=== PATIENT | male | born 1980 | race Caucasian/White ===

== ENCOUNTER 2016-07-21 22:16 | Inpatient (IN) | payer OTHER ==
[~2016-07-21] VITALS: Ht 182.9 cm; Wt 101.2 kg
[2016-07-21] MEDS ORDERED: NITROGLYCERIN 2% OINT 1GM PKG TD STA (22:40)
[2016-07-21] MEDS ORDERED: ASPirin 81 mg TAB PO ONE (22:45)
[2016-07-21 23:04] LABS: Basophils # (auto) 0.1 uL; Basophils % (auto) 0.4 % (0.0-2.0); Eosinophils # (auto) 0.2 uL; Eosinophils % (auto) 1.6 % (0.0-7.0); Hematocrit 48.1 % (41.0-53.0); Hemoglobin 15.6 g/dL (13.5-17.5); Lymphocytes # (auto) 1.4 uL; Lymphocytes % (auto) 10.1 % (10.0-50.0); Mean Corpuscular Hemoglobin 29.1 pg (28.0-32.0); Mean Corpuscular Hgb Conc. 32.3 g/dL (32.0-36.0); Mean Corpuscular Volume 89.9 fL (80.0-100.0); Mean Platelet Volume 8.4 fL (7.4-10.4); Monocytes # (auto) 0.4 uL; Monocytes % (auto) 2.9 % (0.0-12.0); Neutrophils # (auto) 12.2 uL; Platelet Count (auto) 274 10^3/uL (140-450); Red Cell Distribution Width 14.3 % (11.6-16.0); White Blood Cell 14.3 10^3/uL (4.4-10.8)
[2016-07-21 23:24] LABS: INR 0.98 (0.9-1.15); Partial Thromboplastin Time 26.6 sec (22.64-33.71); Prothrombin Time 10.1 sec (9.37-12.3)
[2016-07-21 23:25] LABS: Albumin 3.7 g/dL (3.4-5.0); BUN/Creatinine Ratio 11.3; Calcium 8.6 mg/dL (8.5-10.1)
[2016-07-21 23:27] LABS: Bilirubin, Total 0.2 mg/dL (0.2-1.0); Total Protein 7.7 g/dL (6.4-8.2)
[2016-07-21 23:39] LABS: B-Type Natriuretic Peptide 102.08 pg/mL (0-100)
[2016-07-21] MEDS ORDERED: MORPHINE SULFATE 4 MG/ML SYRG IV ONE (23:45)
[2016-07-21] MEDS ORDERED: ONDANSETRON HCL 4 MG/2 ML VIAL IV ONE (23:45)
[2016-07-22] VITALS (7 sets, daily range): BP systolic 115–133; BP diastolic 58–92
[2016-07-22] MEDS ORDERED: cloNIDine HCL 0.1 MG TAB ONE
[2016-07-22] MEDS ORDERED: cloNIDine HCL 0.1 MG TAB PO ONE (00:30)
[2016-07-22] MEDS ORDERED: FUROSEMIDE 20 MG/2 ML VIAL IV ONE (02:15)
[2016-07-22] MEDS ORDERED: TEMAZEPAM 15 MG CAP PO PRN (05:30)
[2016-07-22] MEDS ORDERED: ONDANSETRON HCL 4 MG/2 ML VIAL IV PRN (05:30)
[2016-07-22] MEDS ORDERED: HYDROcodone-ACET 5/325MG TAB PO PRN (05:30)
[2016-07-22] MEDS ORDERED: ACETAMINOPHEN 325 MG TAB PO PRN (05:30)
[2016-07-22] MEDS ORDERED: cefTRIAXone 1GM/50ML D5W 50 ML IV ONE (05:30)
[2016-07-22] MEDS ORDERED: MORPHINE SULF INJ 2 MG/ML SYRINGE 1ML IV PRN ×2 (05:30→13:15)
[2016-07-22] MEDS ORDERED: NITROGLYCERIN 0.4 MG SL TAB SL PRN (05:30)
[2016-07-22] MEDS ORDERED: MORPHINE SULFATE 4 MG/ML SYRG IV ONE (06:00)
[2016-07-22] MEDS ORDERED: ONDANSETRON HCL 4 MG/2 ML VIAL IV ONE (06:00)
[2016-07-22] MEDS ORDERED: ATOR20TA50 PO (08:50)
[2016-07-22] MEDS ORDERED: CLON0.1T PO (08:50)
[2016-07-22] MEDS ORDERED: LISI-646 PO (08:50)
[2016-07-22] MEDS: FAMOTIDINE 20 MG TAB PO SCH ×2 (09:31→21:56)
[2016-07-22] MEDS: LISINOPRIL 10 MG TAB PO SCH (09:32)
[2016-07-22] MEDS: ASPirin 81 mg TAB PO SCH (09:33)
[2016-07-22] MEDS: ENOXAPARIN SOD 40 MG/0.4 ML SYRINGE SC SCH (09:34)
[2016-07-22] MEDS ORDERED: MORPHINE SULFATE 4 MG/ML SYRG IV PRN (10:00)
[2016-07-22] MEDS ORDERED: ATORVASTATIN 20 MG TAB PO SCH (22:00)
[2016-07-22 22:08] LABS: Urine RBC None Seen /hpf (0 - 3)
[2016-07-22 22:17] LABS: Urine Bilirubin Negative (Negative); Urine Blood Negative /uL (Negative); Urine Color Yellow (Yellow); Urine Glucose Normal (Normal); Urine Ketone Negative (Negative); Urine Nitrite Negative (Negative); Urine Squamous Epithelial Cell FEW /hpf (<5); Urine Urobilinogen Normal (Negative); Urine pH 5.5 (5.0-8.0)
[2016-07-23 05:00] VITALS: BP 156/93
[2016-07-23 06:20] LABS: Basophils # (auto) 0 uL; Basophils % (auto) 0.3 % (0.0-2.0); Eosinophils # (auto) 0.2 uL; Eosinophils % (auto) 2.3 % (0.0-7.0); Hematocrit 44.4 % (41.0-53.0); Hemoglobin 14.4 g/dL (13.5-17.5); Lymphocytes % (auto) 19.3 % (10.0-50.0); Mean Corpuscular Hemoglobin 29.2 pg (28.0-32.0); Mean Corpuscular Hgb Conc. 32.4 g/dL (32.0-36.0); Mean Corpuscular Volume 90.1 fL (80.0-100.0); Mean Platelet Volume 8.6 fL (7.4-10.4); Monocytes # (auto) 0.5 uL; Monocytes % (auto) 4.7 % (0.0-12.0); Neutrophils # (auto) 7.8 uL; Neutrophils % (auto) 73.4 % (37.0-80.0); Platelet Count (auto) 275 10^3/uL (140-450); Red Cell Distribution Width 14.6 % (11.6-16.0); White Blood Cell 10.6 10^3/uL (4.4-10.8)
[2016-07-23 06:47] LABS: Albumin 3.5 g/dL (3.4-5.0); BUN/Creatinine Ratio 17.1; Bilirubin, Total 0.5 mg/dL (0.2-1.0); Calcium 9.1 mg/dL (8.5-10.1); Potassium 4.1 mmol/L (3.5-5.1); Total Protein 7.6 g/dL (6.4-8.2)
[2016-07-23] MEDS: FAMOTIDINE 20 MG TAB PO SCH (08:23)
[2016-07-23] MEDS: ASPirin 81 mg TAB PO SCH (08:23)
[2016-07-23] MEDS: LISINOPRIL 10 MG TAB PO SCH (08:24)
[2016-07-23 09:02] VITALS: BP 159/93
[2016-07-23] MEDS: ENOXAPARIN SOD 40 MG/0.4 ML SYRINGE SC SCH (10:00)
[2016-07-23 13:00] VITALS: BP 134/92
[2016-07-23 13:10] VITALS: BP 159/93
== END 2016-07-23 13:10 | disposition home or self-care (01) | DRG 203 ==
LOC: ER 22:23 → TELE 22:24 → TELE-EAST 07-22 06:07
PROVIDERS: ADMIT Nurse Practitioner; ATTEND Internal Medicine
DX: M94.0 Chondrocostal junction syndrome [Tietze] (principal); I11.0 Hypertensive heart disease with heart failure; R07.9 Chest pain, unspecified; E78.5 Hyperlipidemia, unspecified; D72.829 Elevated white blood cell count, unspecified; M79.602 Pain in left arm; Z86.73 Personal history of transient ischemic attack (TIA), and cerebral infarction without residual deficits
CPT/HCPCS: 36415; 70450; 71010; 78452; 80053; 81001; 83735; 83880; 84443; 84484; 85025; 85049; 85610; 85730; 93005; 93017; 93306; 94761; 96365; 96375; 96376; J0696; J2405

== ENCOUNTER 2018-02-28 03:34 | Inpatient (IN) | payer OTHER ==
[~2018-02-28] VITALS: Ht 182.9 cm; Wt 104.2 kg
[~2018-02-28 03:34] MED LIST: ATOR20TA50 PO; CLON0.1T PO; LISI-646 PO
[2018-02-28] MEDS ORDERED: NITROGLYCERIN 0.4 MG SL TAB SL ONE (04:15)
[2018-02-28 04:16] LABS: Basophils # (auto) 0 uL; Basophils % (auto) 0.5 % (0.0-2.0); Eosinophils # (auto) 0.2 uL; Eosinophils % (auto) 1.9 % (0.0-7.0); Hematocrit 47.3 % (41.0-53.0); Hemoglobin 16.2 g/dL (13.5-17.5); Lymphocytes # (auto) 2.3 uL; Lymphocytes % (auto) 24.7 % (10.0-50.0); Mean Corpuscular Hemoglobin 31.3 pg (28.0-32.0); Mean Corpuscular Hgb Conc. 34.3 g/dL (32.0-36.0); Mean Corpuscular Volume 91.3 fL (80.0-100.0); Monocytes # (auto) 0.5 uL; Monocytes % (auto) 4.9 % (0.0-12.0); Neutrophils # (auto) 6.4 uL; Nucleated Red Blood Cells % 0.2 %; Platelet Count (auto) 265 10^3/uL (140-450); Red Blood Cells 5.18 10^6/uL (4.5-5.90); Red Cell Distribution Width 14.1 % (11.8-14.3); White Blood Cell 9.4 10^3/uL (4.4-10.8)
[2018-02-28 04:29] LABS: Albumin 3.6 g/dL (3.4-5.0); Calcium 8.1 mg/dL (8.5-10.1); Potassium 3.7 mmol/L (3.5-5.1)
[2018-02-28 04:31] LABS: BUN/Creatinine Ratio 8.6
[2018-02-28 04:32] LABS: INR 0.94 (0.9-1.15); Partial Thromboplastin Time 27.3 sec (23.78-33.04); Prothrombin Time 10.1 sec (9.27-12.13)
[2018-02-28] MEDS ORDERED: ONDANSETRON HCL 4 MG/2 ML VIAL IV ONE (04:45)
[2018-02-28] MEDS ORDERED: MORPHINE SULFATE 4 MG/ML SYR/VIAL IV ONE (04:45)
[2018-02-28 04:48] LABS: Bilirubin, Total 0.2 mg/dL (0.2-1.0); Total Protein 7.3 g/dL (6.4-8.2)
[2018-02-28] MEDS ORDERED: IOHEXOL 350 MG/ML 100ML IJ ONE ×2 (04:50→16:46)
[2018-02-28] MEDS ORDERED: cloNIDine HCL 0.1 MG TAB PO PRN ×2 (05:15→14:30)
[2018-02-28] MEDS ORDERED: NITROGLYCERIN 0.4 MG SL TAB SL PRN (05:15)
[2018-02-28] MEDS ORDERED: ENOXAPARIN SOD 100 MG/1 ML SYRINGE SC ONE (05:15)
[2018-02-28] MEDS ORDERED: ACETAMINOPHEN 325 MG TAB PO PRN (05:15)
[2018-02-28] MEDS ORDERED: ONDANSETRON HCL 4 MG/2 ML VIAL IV PRN (05:15)
[2018-02-28] MEDS ORDERED: MORPHINE SULF INJ 2 MG/ML SYRINGE 1ML IV PRN (05:15)
[2018-02-28] MEDS ORDERED: HYDROcodone-ACET 5/325MG TAB PO PRN (05:15)
[2018-02-28] MEDS ORDERED: ATORVASTATIN 20 MG TAB PO ONE (07:00)
[2018-02-28] MEDS ORDERED: ASPirin 81 mg TAB PO SCH (10:00)
[2018-02-28] MEDS: FAMOTIDINE 20 MG TAB PO SCH ×2 (10:08→22:44)
[2018-02-28] MEDS: LISINOPRIL 10 MG TAB PO SCH (10:08)
[2018-02-28] MEDS ORDERED: EPTIFIBATIDE DRIP(0.75MG/ML) 100 ML IV ONE (14:55)
[2018-02-28] MEDS: EPTIFIBATIDE DRIP(0.75MG/ML) 100 ML IV SCH ×2 (15:15→21:40)
[2018-02-28] MEDS ORDERED: LIDOCAINE 2%HCL (LOCAL ANESTH.) INJ 10ml MDV ONE (15:33)
[2018-02-28] MEDS ORDERED: IODIXANOL 320MG/ML 100ML BTL IV ONE (15:33)
[2018-02-28] MEDS ORDERED: fentaNYL CITRATE 100 MCG/2 ML VL ONE (16:26)
[2018-02-28] MEDS ORDERED: MIDAZOLAM HCL 1MG/1ML-2 ML VIAL ONE (16:26)
[2018-02-28] MEDS ORDERED: SODIUM CHL 0.9% 50 ML ONE (16:35)
[2018-02-28] MEDS ORDERED: ANGIOMAX 250 MG VIAL IV ONE (16:35)
[2018-02-28] MEDS ORDERED: TICAGRELOR 90 MG TAB ONE (16:55)
[2018-02-28] MEDS ORDERED: ASPirin 325 MG TAB ONE (16:56)
[2018-02-28 21:58] VITALS: BP 143/66
[2018-02-28] MEDS ORDERED: ATORVASTATIN 20 MG TAB PO SCH (22:00)
[2018-02-28] MEDS: TICAGRELOR 90 MG TAB PO SCH (22:44)
[2018-03-01] MEDS: EPTIFIBATIDE DRIP(0.75MG/ML) 100 ML IV SCH ×2 (03:59→11:00)
[2018-03-01 05:58] VITALS: BP 102/54
[2018-03-01 07:41] LABS: Basophils # (auto) 0 uL; Basophils % (auto) 0.3 % (0.0-2.0); Eosinophils # (auto) 0.1 uL; Eosinophils % (auto) 0.8 % (0.0-7.0); Hematocrit 41.5 % (41.0-53.0); Hemoglobin 13.9 g/dL (13.5-17.5); Lymphocytes # (auto) 1.2 uL; Lymphocytes % (auto) 14.7 % (10.0-50.0); Mean Corpuscular Hemoglobin 30.9 pg (28.0-32.0); Mean Corpuscular Hgb Conc. 33.5 g/dL (32.0-36.0); Mean Corpuscular Volume 92.2 fL (80.0-100.0); Monocytes # (auto) 0.4 uL; Monocytes % (auto) 5.3 % (0.0-12.0); Neutrophils # (auto) 6.4 uL; Neutrophils % (auto) 78.9 % (37.0-80.0); Platelet Count (auto) 232 10^3/uL (140-450); Red Cell Distribution Width 14.3 % (11.8-14.3); White Blood Cell 8.1 10^3/uL (4.4-10.8)
[2018-03-01 08:19] LABS: Albumin 2.9 g/dL (3.4-5.0); BUN/Creatinine Ratio 15.7; Bilirubin, Total 0.7 mg/dL (0.2-1.0); Calcium 7.7 mg/dL (8.5-10.1); Total Protein 6.1 g/dL (6.4-8.2)
[2018-03-01 09:00] VITALS: BP 120/70
[2018-03-01] MEDS ORDERED: ASPirin 81 mg TAB PO SCH (10:00)
[2018-03-01] MEDS: TICAGRELOR 90 MG TAB PO SCH (10:33)
[2018-03-01] MEDS: LISINOPRIL 10 MG TAB PO SCH (10:34)
[2018-03-01] MEDS: FAMOTIDINE 20 MG TAB PO SCH (10:34)
[2018-03-01 13:00] VITALS: BP 124/85
[2018-03-01 16:03] VITALS: BP 124/85
== END 2018-03-01 16:20 | disposition home or self-care (01) | DRG 175 ==
LOC: EDBD 03:34 → ER 03:40 → TELE 03:41 → TELE-CENTR 19:25
PROVIDERS: ADMIT Nurse Practitioner; ATTEND Internal Medicine
PROC: 4A023N7 Measurement of Cardiac Sampling and Pressure, Left Heart, Percutaneous Approach (ICD-10-PCS; principal; 2018-02-28)
PROC: 027035Z Dilation of Coronary Artery, One Artery with Two Drug-eluting Intraluminal Devices, Percutaneous Approach (ICD-10-PCS; 2018-02-28)
PROC: B2111ZZ Fluoroscopy of Multiple Coronary Arteries using Low Osmolar Contrast (ICD-10-PCS; 2018-02-28)
PROC: B2151ZZ Fluoroscopy of Left Heart using Low Osmolar Contrast (ICD-10-PCS; 2018-02-28)
PROC: 02C03ZZ Extirpation of Matter from Coronary Artery, One Artery, Percutaneous Approach (ICD-10-PCS; 2018-02-28)
DX: I25.119 Atherosclerotic heart disease of native coronary artery with unspecified angina pectoris (principal); I21.19 ST elevation (STEMI) myocardial infarction involving other coronary artery of inferior wall; I50.43 Acute on chronic combined systolic (congestive) and diastolic (congestive) heart failure; E44.0 Moderate protein-calorie malnutrition; N18.2 Chronic kidney disease, stage 2 (mild); I13.0 Hypertensive heart and chronic kidney disease with heart failure and stage 1 through stage 4 chronic kidney disease, or unspecified chronic kidney disease; E78.5 Hyperlipidemia, unspecified; E66.9 Obesity, unspecified; F17.210 Nicotine dependence, cigarettes, uncomplicated; Z68.31 Body mass index [BMI] 31.0-31.9, adult; Z82.49 Family history of ischemic heart disease and other diseases of the circulatory system; Z86.73 Personal history of transient ischemic attack (TIA), and cerebral infarction without residual deficits; Z91.14 Patient's other noncompliance with medication regimen
CPT/HCPCS: 36415; 71045; 71275; 80053; 83880; 84484; 85025; 85610; 85730; 92928; 92973; 93005; 93306; 93458; 94761; 96372; 96374; 96375; 96376; 99152; A6257; C1874; C1887; J2001; J2250; J2405; Q9967

== ENCOUNTER → 2018-04-11 | Outpatient (CLI) | payer OTHER, MEDICAID ==
[~2018-04-11] MED LIST changes: -CLON0.1T PO
== END | disposition home or self-care (01) ==
LOC: Rad HDHVI 13:19
PROVIDERS: ATTEND Internal Medicine
DX: I08.1 Rheumatic disorders of both mitral and tricuspid valves (principal); I25.10 Atherosclerotic heart disease of native coronary artery without angina pectoris; I25.2 Old myocardial infarction; Z95.5 Presence of coronary angioplasty implant and graft
CPT/HCPCS: 93306

== ENCOUNTER → 2018-06-23 | Outpatient (CLI) | payer MEDICAID ==
[~2018-06-23] MED LIST changes: +CARVEDILOL 3.125 MG TAB ONE; +CARVEDILOL 3.125 MG TAB PO ONE; +LISINOPRIL 10 MG TAB ONE; +LISINOPRIL 20 MG TAB PO ONE
[2018-06-23 12:07] LABS: Basophils # (auto) 0 uL; Basophils % (auto) 0.6 % (0.0-2.0); Eosinophils # (auto) 0.2 uL; Hematocrit 48.1 % (41.0-53.0); Lymphocytes % (auto) 29.9 % (10.0-50.0); Mean Corpuscular Hemoglobin 30.1 pg (28.0-32.0); Mean Corpuscular Hgb Conc. 33.1 g/dL (32.0-36.0); Mean Corpuscular Volume 90.8 fL (80.0-100.0); Monocytes # (auto) 0.3 uL; Monocytes % (auto) 5.2 % (0.0-12.0); Neutrophils % (auto) 61.3 % (37.0-80.0); Platelet Count (auto) 283 10^3/uL (140-450); White Blood Cell 6.5 10^3/uL (4.4-10.8)
[2018-06-23 12:21] LABS: Anion Gap 7 (5-15); Blood Urea Nitrogen 13 mg/dL (7-18); Calcium 8.7 mg/dL (8.5-10.1); Carbon Dioxide 23 mmol/L (21-32); Chloride 106 mmol/L (98-107); Glucose 105 mg/dL (74-106); Magnesium 2.2 mg/dL (1.6-2.6); Potassium 4.1 mmol/L (3.5-5.1); Sodium 136 mmol/L (136-145)
[2018-06-23 12:23] LABS: BUN/Creatinine Ratio 14.4; GFR African American 121 mL/min; GFR Non-African American 100 mL/min
[2018-06-23 14:00] VITALS: BP 140/90
== END | disposition home or self-care (01) ==
LOC: CHF HDHVI 10:31
PROVIDERS: ATTEND Internal Medicine
DX: I25.119 Atherosclerotic heart disease of native coronary artery with unspecified angina pectoris (principal); I11.0 Hypertensive heart disease with heart failure; I50.23 Acute on chronic systolic (congestive) heart failure; E83.40 Disorders of magnesium metabolism, unspecified; D64.9 Anemia, unspecified; I95.1 Orthostatic hypotension; I25.9 Chronic ischemic heart disease, unspecified; I49.8 Other specified cardiac arrhythmias; R94.31 Abnormal electrocardiogram [ECG] [EKG]; Z86.79 Personal history of other diseases of the circulatory system
CPT/HCPCS: 36415; 80048; 83735; 83880; 84484; 85025; 93005; G0463

== ENCOUNTER → 2018-07-18 | Outpatient (CLI) | payer MEDICAID ==
[~2018-07-18] MED LIST changes: -CARVEDILOL 3.125 MG TAB ONE; -CARVEDILOL 3.125 MG TAB PO ONE; -LISINOPRIL 10 MG TAB ONE; -LISINOPRIL 20 MG TAB PO ONE
== END | disposition home or self-care (01) ==
LOC: Rad HDHVI 14:43
PROVIDERS: ATTEND Internal Medicine Cardiovascular Disease
DX: I42.0 Dilated cardiomyopathy (principal); I50.23 Acute on chronic systolic (congestive) heart failure
CPT/HCPCS: 93306

== ENCOUNTER → 2018-09-20 | Outpatient (CLI) | payer MEDICAID ==
[~2018-09-20] MED LIST changes: +ASPI81TA27 PO; +CARV12.544 PO; +CLOP75TA28 PO; +SACU1TAB4 PO
[2018-09-20 09:00] VITALS: BP 138/102
[2018-09-20 09:41] VITALS: BP 148/98
--- NOTE | 2018-09-20 09:41 | NUR ---
PREOP BIV-AICD ON 09/22/18 Pre-Op Discharge Summary: See e-MAR for any medications given for this visit. Pre-op orders received and carried out per MD of EKG, LABS. Patient given a copy of EKG with instructions to go to [facility] out patient for CXR AND further follow up care.
[2018-09-20 12:02] LABS: Basophils # (auto) 0 uL; Basophils % (auto) 0.5 % (0.0-2.0); Eosinophils # (auto) 0.2 uL; Eosinophils % (auto) 3.4 % (0.0-7.0); Hematocrit 47.1 % (41.0-53.0); Hemoglobin 15.7 g/dL (13.5-17.5); Lymphocytes # (auto) 1.8 uL; Lymphocytes % (auto) 30.5 % (10.0-50.0); Mean Corpuscular Hemoglobin 30.7 pg (28.0-32.0); Mean Corpuscular Hgb Conc. 33.2 g/dL (32.0-36.0); Mean Corpuscular Volume 92.5 fL (80.0-100.0); Monocytes # (auto) 0.4 uL; Neutrophils # (auto) 3.5 uL; Neutrophils % (auto) 59.6 % (37.0-80.0); Nucleated Red Blood Cells % 0.9 %; Platelet Count (auto) 208 10^3/uL (140-450); Red Blood Cells 5.09 10^6/uL (4.5-5.90); Red Cell Distribution Width 14.7 % (11.8-14.3); White Blood Cell 5.8 10^3/uL (4.4-10.8)
[2018-09-20 12:14] LABS: INR 0.94 (0.9-1.15); Partial Thromboplastin Time 23.8 sec (23.78-33.04); Prothrombin Time 10.1 sec (9.27-12.13)
[2018-09-20 12:18] LABS: Potassium 4.2 mmol/L (3.5-5.1)
[2018-09-20 12:22] LABS: BUN/Creatinine Ratio 14.1; Calcium 8.8 mg/dL (8.5-10.1)
== END | disposition home or self-care (01) ==
LOC: CHF HDHVI 08:49
PROVIDERS: ATTEND Internal Medicine Cardiovascular Disease
DX: Z01.818 Encounter for other preprocedural examination (principal); I11.0 Hypertensive heart disease with heart failure; I50.9 Heart failure, unspecified; I42.9 Cardiomyopathy, unspecified; I25.9 Chronic ischemic heart disease, unspecified; D64.9 Anemia, unspecified; R79.1 Abnormal coagulation profile
CPT/HCPCS: 36415; 80048; 85025; 85610; 85730; 93005; G0463

== ENCOUNTER 2018-09-22 07:13 | Inpatient (IN) | payer MEDICAID | END 2018-09-23 16:16 | disposition home or self-care (01) | LOC: CATH 07:13 → TELE-CENTR 13:10 | PROC: 0JPT0PZ Removal of Cardiac Rhythm Related Device from Trunk Subcutaneous Tissue and Fascia, Open Approach (ICD-10-PCS; principal; ~2018-09-22) | PROC: 0JH609Z Insertion of Cardiac Resynchronization Defibrillator Pulse Generator into Chest Subcutaneous Tissue and Fascia, Open Approach (ICD-10-PCS; ~2018-09-22) | DX: I47.2 Ventricular tachycardia (principal); I42.0 Dilated cardiomyopathy; I50.20 Unspecified systolic (congestive) heart failure; I45.10 Unspecified right bundle-branch block; I49.8 Other specified cardiac arrhythmias; Z95.810 Presence of automatic (implantable) cardiac defibrillator ==

== ENCOUNTER → 2018-10-19 | Outpatient (CLI) | payer MEDICAID ==
[~2018-10-19] MED LIST changes: -LISI-646 PO
== END | disposition home or self-care (01) ==
LOC: Rad HDHVI 10:03
PROVIDERS: ATTEND Internal Medicine Cardiovascular Disease
DX: I08.1 Rheumatic disorders of both mitral and tricuspid valves (principal); I25.5 Ischemic cardiomyopathy; I50.23 Acute on chronic systolic (congestive) heart failure
CPT/HCPCS: 93306

== ENCOUNTER → 2018-11-02 | Outpatient (CLI) | payer MEDICAID ==
[~2018-11-02] VITALS: Ht 182.9 cm; Wt 102.1 kg
[~2018-11-02] MED LIST changes: +ADENOSINE 86 MG in GIVE UN-DILUTED 0 ML IV ONE; +ADENOSINE 90 MG/30 ML INJ IV ONE
== END | disposition home or self-care (01) ==
LOC: Rad HDHVI 13:47
PROVIDERS: ATTEND Internal Medicine Cardiovascular Disease
DX: I11.0 Hypertensive heart disease with heart failure (principal); I50.23 Acute on chronic systolic (congestive) heart failure; I25.5 Ischemic cardiomyopathy
CPT/HCPCS: 78452; 93005; 96374; 96375; A9500; J0153

== ENCOUNTER 2019-05-30 23:49 | Emergency (ER) | payer MEDICAID ==
[~2019-05-30] VITALS: Ht 182.9 cm; Wt 102.1 kg
[~2019-05-30 23:49] MED LIST changes: -ADENOSINE 86 MG in GIVE UN-DILUTED 0 ML IV ONE; -ADENOSINE 90 MG/30 ML INJ IV ONE; +ASPI-404 PO; -ASPI81TA27 PO
[2019-05-31] MEDS ORDERED: cefTRIAXone 1GM/50ML D5W 50 ML IV ONE ×2 (00:22→01:32)
[2019-05-31] MEDS ORDERED: CEFTRIAXONE SODIUM 2 GM in D5W 5% 50 ML IV ONE (00:30)
[2019-05-31 00:31] LABS: Basophils # (auto) 0.1 uL; Basophils % (auto) 0.7 % (0.0-2.0); Eosinophils # (auto) 0.1 uL; Eosinophils % (auto) 1.3 % (0.0-7.0); Hematocrit 48.9 % (41.0-53.0); Hemoglobin 16.8 g/dL (13.5-17.5); Lymphocytes # (auto) 1.7 uL; Lymphocytes % (auto) 16.9 % (10.0-50.0); Mean Corpuscular Hemoglobin 32.5 pg (28.0-32.0); Mean Corpuscular Hgb Conc. 34.3 g/dL (32.0-36.0); Mean Corpuscular Volume 94.9 fL (80.0-100.0); Monocytes # (auto) 0.6 uL; Monocytes % (auto) 6.4 % (0.0-12.0); Neutrophils # (auto) 7.5 uL; Neutrophils % (auto) 74.7 % (37.0-80.0); Platelet Count (auto) 204 10^3/uL (140-450); Red Blood Cells 5.15 10^6/uL (4.5-5.90); Red Cell Distribution Width 14.6 % (11.8-14.3); White Blood Cell 10.1 10^3/uL (4.4-10.8)
[2019-05-31 00:49] LABS: Albumin 3.6 g/dL (3.4-5.0); BUN/Creatinine Ratio 13.6; Calcium 8.4 mg/dL (8.5-10.1)
[2019-05-31 00:56] LABS: Bilirubin, Total 0.4 mg/dL (0.2-1.0); Total Protein 7.5 g/dL (6.4-8.2)
[2019-05-31] MEDS ORDERED: IOHEXOL 300 MG/ML 100ML BOTTLE IJ ONE (01:05)
[2019-05-31 02:10] VITALS: BP 131/70
== END 2019-05-31 03:14 | disposition home or self-care (01) ==
LOC: ER 23:51
DX: K04.7 Periapical abscess without sinus (principal); I11.0 Hypertensive heart disease with heart failure; I50.9 Heart failure, unspecified; E78.5 Hyperlipidemia, unspecified; F17.210 Nicotine dependence, cigarettes, uncomplicated; H92.02 Otalgia, left ear; Z86.73 Personal history of transient ischemic attack (TIA), and cerebral infarction without residual deficits; Z79.899 Other long term (current) drug therapy
CPT/HCPCS: 36415; 70487; 80053; 85025; 96365; 99284; J0696; J7060; Q9967

== ENCOUNTER → 2020-12-03 | Outpatient (CLI) | payer MEDICAID ==
[~2020-12-03] MED LIST changes: -ASPI-404 PO; +ASPI-543 PO
== END | disposition home or self-care (01) ==
LOC: Rad HDHVI 08:06
PROVIDERS: ATTEND Internal Medicine Cardiovascular Disease
DX: I10 Essential (primary) hypertension (principal); E78.5 Hyperlipidemia, unspecified
CPT/HCPCS: 93306

== ENCOUNTER → 2021-01-21 | Outpatient (CLI) | payer MEDICAID ==
[~2021-01-21] VITALS: Ht 182.9 cm; Wt 99.8 kg
[~2021-01-21] MED LIST changes: +ADENOSINE 84 MG in GIVE UN-DILUTED 0 ML IV ONE; +ADENOSINE 90 MG/30 ML INJ IV ONE
== END | disposition home or self-care (01) ==
LOC: Rad HDHVI 07:59
PROVIDERS: ATTEND Internal Medicine Cardiovascular Disease
DX: I11.0 Hypertensive heart disease with heart failure (principal); I50.43 Acute on chronic combined systolic (congestive) and diastolic (congestive) heart failure; I25.10 Atherosclerotic heart disease of native coronary artery without angina pectoris; I25.2 Old myocardial infarction; E78.5 Hyperlipidemia, unspecified; J44.9 Chronic obstructive pulmonary disease, unspecified; Z95.0 Presence of cardiac pacemaker
CPT/HCPCS: 78452; 93005; 96374; 96375; A9500; J0153

== ENCOUNTER → 2021-01-27 | Outpatient (CLI) | payer MEDICAID ==
[~2021-01-27] MED LIST changes: -ADENOSINE 84 MG in GIVE UN-DILUTED 0 ML IV ONE; -ADENOSINE 90 MG/30 ML INJ IV ONE
== END | disposition home or self-care (01) ==
LOC: Rad HDHVI 09:14
PROVIDERS: ATTEND Internal Medicine Cardiovascular Disease
DX: M25.512 Pain in left shoulder (principal); I70.0 Atherosclerosis of aorta; I25.10 Atherosclerotic heart disease of native coronary artery without angina pectoris
CPT/HCPCS: 73200

== ENCOUNTER 2023-07-31 13:57 | Emergency (ER) | payer SELFPAY ==
[~2023-07-31] VITALS: Ht 182.9 cm; Wt 104.5 kg
[2023-07-31 15:41] VITALS: BP 169/85; PULSE 93; RESP 18; TEMP 98.7; O2SAT 100
[2023-07-31] MEDS ORDERED: CIPRSUS OT ×2 (15:47)
[2023-07-31] MEDS ORDERED: CIPR0.3S67 OP (15:48)
== END 2023-07-31 15:57 | disposition home or self-care (01) ==
LOC: ER 13:57
DX: H10.32 Unspecified acute conjunctivitis, left eye (principal); I11.0 Hypertensive heart disease with heart failure; I50.9 Heart failure, unspecified; E78.5 Hyperlipidemia, unspecified; F17.210 Nicotine dependence, cigarettes, uncomplicated; Z86.73 Personal history of transient ischemic attack (TIA), and cerebral infarction without residual deficits; Z79.899 Other long term (current) drug therapy

== ENCOUNTER → 2023-12-23 | Outpatient (CLI) | payer MEDICAID ==
[~2023-12-23] MED LIST changes: +CIPR0.3S67 OP
== END | disposition home or self-care (01) ==
LOC: Rad HDHVI 08:01
PROVIDERS: ATTEND Internal Medicine Cardiovascular Disease
DX: I34.0 Nonrheumatic mitral (valve) insufficiency (principal); E78.5 Hyperlipidemia, unspecified; I11.9 Hypertensive heart disease without heart failure
CPT/HCPCS: 93306

== ENCOUNTER → 2023-12-24 | Outpatient (CLI) | payer MEDICAID ==
[~2023-12-24] VITALS: Ht 182.9 cm; Wt 106.6 kg
[~2023-12-24] MED LIST changes: +ADENOSINE 90 MG in GIVE UN-DILUTED 0 ML IV ONE; +ADENOSINE 90 MG/30 ML INJ IV ONE
== END | disposition home or self-care (01) ==
LOC: Rad HDHVI 08:22
PROVIDERS: ATTEND Internal Medicine Cardiovascular Disease
DX: I25.10 Atherosclerotic heart disease of native coronary artery without angina pectoris (principal); I11.0 Hypertensive heart disease with heart failure; I50.23 Acute on chronic systolic (congestive) heart failure; E78.5 Hyperlipidemia, unspecified; R60.9 Edema, unspecified; I25.2 Old myocardial infarction; R06.02 Shortness of breath; J44.9 Chronic obstructive pulmonary disease, unspecified; F17.210 Nicotine dependence, cigarettes, uncomplicated; Z95.0 Presence of cardiac pacemaker
CPT/HCPCS: 78452; 93005; 96374; 96375; A9500; J0153

== ENCOUNTER 2024-04-05 13:37 | Emergency (ER) | payer MEDICAID ==
[~2024-04-05] VITALS: Ht 182.9 cm; Wt 103.0 kg
[~2024-04-05 13:37] MED LIST changes: -ADENOSINE 90 MG in GIVE UN-DILUTED 0 ML IV ONE; -ADENOSINE 90 MG/30 ML INJ IV ONE
[2024-04-05 14:06] VITALS: BP 136/83; PULSE 86; RESP 18; O2SAT 94
[2024-04-05] MEDS ORDERED: CEFD300C2 PO (16:59)
[2024-04-05] MEDS ORDERED: BACI1OIN45 EX (16:59)
== END 2024-04-05 21:24 | disposition home or self-care (01) ==
LOC: ER 13:45
DX: N49.2 Inflammatory disorders of scrotum (principal); N43.3 Hydrocele, unspecified; I11.0 Hypertensive heart disease with heart failure; I50.89 Other heart failure; E78.5 Hyperlipidemia, unspecified; F17.210 Nicotine dependence, cigarettes, uncomplicated; Z79.899 Other long term (current) drug therapy
CPT/HCPCS: 76870

== ENCOUNTER → 2024-07-17 | Outpatient (CLI) | payer MEDICAID ==
[~2024-07-17] MED LIST changes: +BACI1OIN45 EX; +CEFD300C2 PO
--- NOTE | 2024-07-17 16:38 | DVHSR ---
APPROVED REPORT EXAM: Two-dimensional and M-mode echocardiogram with Doppler and color Doppler. DIMENSIONS LVDd5.7 (3.8-5.7cm)LA (2D)4.3 (1.9-4.0cm)Aortic Root3.2 (2.0-3.7cm) LVDs5.2 (2.5-4.0cm)LA (MM) (1.9-4.0cm)Aortic Cusp Exc2.0 (1.5-2.0cm) EF (%) 21.0 (55-70%)Rt. Atrium4.3 (1.9-4.0cm)Asc. Aorta cm IVSd1.3 (0.7-1.1cm)RV (D)3.2 (1.8-2.4cm) PWd1.2 (0.7-1.1cm) Mitral Valve MitralMitral Stenosis E wave0.73m/sMV Mean GR.mmHg A wave0.77m/sMV Peak GR.102mmHg E/A ratio0.92D MVAcm2 DECEL [id number] 1/2 Timems Aortic Valve Aortic ValveAortic Stenosis V11.08m/Juana Mean GR.2mmHg V21.25m/Juana Peak GR.6mmHg Pulmonic Valve V20.79m/s Tricuspid Valve [id number] LEFT VENTRICLE The Ejection Fraction is <25%. ATRIA The left atrium is dilated. The right atrium is dilated. MITRAL VALVE The mitral valve is normal in structure and function. Mitral regurgitation is moderate. PULMONIC VALVE The pulmonic valve is not well visualized. TRICUSPID VALVE The tricuspid valve is grossly normal. There is trace tricuspid regurgitation. AORTIC VALVE The aortic valve opens well. No aortic regurgitation is present. GREAT VESSELS The aortic root is normal size. PERICARDIAL EFFUSION There is no pericardial effusion. Conclusion EF <25% MOD MR LAE RACHEL [facility]
== END | disposition home or self-care (01) ==
LOC: Rad HDHVI 10:55
PROVIDERS: ATTEND Internal Medicine Cardiovascular Disease
DX: I34.0 Nonrheumatic mitral (valve) insufficiency (principal); Z95.0 Presence of cardiac pacemaker
CPT/HCPCS: 93306

== ENCOUNTER 2025-03-14 19:43 | Emergency (ER) | payer MEDICAID ==
[~2025-03-14] VITALS: Ht 182.9 cm; Wt 120.9 kg
[2025-03-14 19:44] VITALS: BP 144/88; PULSE 91; RESP 18; TEMP 97.8; O2SAT 97
--- NOTE | 2025-03-14 21:07 | DVH ---
COMPUTERIZED TOMOGRAPHY ABDOMEN AND PELVIS WITHOUT CONTRAST REASON FOR EXAM: L FLANK PAIN COMPARISON: None TECHNIQUE: Spiral scans were acquired from the diaphragm to the symphysis pubis without intravenous c ontrast administration. 2-D coronal and sagittal reformatted images were provided. Radiation optimiza tion: All CT scans at this facility use at least one of these dose optimization techniques: Automated exposure control mA and/or kV adjustment per patient size (includes targeted exams where dose is mat ched to clinical indication) or iterative reconstruction. RADIATION DOSE: CTDI: 22.94 mGy DLP: 1308.38 mGy-cm FINDINGS: There is mild dependent atelectasis in the left lower lobe. There is no pleural effusion. There is n o pericardial effusion. There is partial visualization of cardiac pacer wires. The spleen is not enlarged. The liver is normal in size and contour. Evaluation of the abdominal org ans is suboptimal in the absence of intravenous contrast. No calcified gallstone is identified. Ther e is no pericholecystic edema. Unenhanced appearance of the pancreas is unremarkable. The adrenal g lands are normal. The kidneys are similar in size. There is no hydronephrosis of either kidney. There is no renal, ureteral, or bladder calculus. There is no abdominal aortic aneurysm. There is moderat e atherosclerosis. The urinary bladder is unremarkable. The prostate and seminal vesicles are within normal limits. The colonic stool burden is small. The appendix is normal. There is no pathologic di stention of the small bowel. No free fluid is identified in the abdomen or pelvis. There is no path ologic lymphadenopathy by size criteria. No acute osseous abnormality is identified. IMPRESSION: No renal, ureteral, or bladder calculus is identified. There is no hydronephrosis of either kidney.
--- NOTE | 2025-03-14 21:25 | ED.PDOC ---
Back pain HPI HPI Comments HPI: 44-year-old male presents to the ED with a chief complaint of right upper back pain onset 2 weeks. Patient states he has been experiencing upper back pain for the past two weeks, points to immediately below left scapula region. Since today, pain has been constant, sharp and has worsened. Pain has slight improvement when he sits, does not move. Denies any dysuria, hematuria, hematemesis, fever, chills, chest pain, shortness a breath, dizziness, headache. No other symptoms or modifying factors present at this time. Initial Vitals BP: 144/88 HR: 91 RR: 18 O2: 97% Temp: 97.8 F Past Medical History: CHF, CVA, HTN, HLD Past Surgical History: pacemaker, Social History: Denies drug use. Smokes cigarettes, occasional ETOH. Medications: Aspirin, Atorvastatin Allergies: NKDA HPI: Poor Historian. REVIEW OF SYSTEMS: CONSTITUTIONAL: Denies acute: fever, diaphoresis, chills, generalized weakness. HEAD: Denies acute: headache, photophobia Eyes: Denies acute: Double vision, vision loss, eye pain, eye discharge. EARS: Denies acute: tinnitus, hearing loss, ear discharge, ear pain, THROAT: Denies acute: sore throat, swelling, difficulty swallowing , pain with swallowing, change in voice. NECK: Denies acute: neck pain, neck swelling, stiff neck. HEART: Denies acute : chest pain, palpitations, LUNGS: Denies acute: SOB, wheezing, cough, hemoptysis ABDOMEN: Denies acute: abdominal pain, Nausea, Vomiting, diarrhea, melena , hematemesis, hematochezia SKIN: Denies acute: rash, redness, lesions, itchiness. EXTREMITIES: Denies acute: calf pain, numbness, tingling, weakness, denies pain in extremity. Denies acute: Low back pain. Neuro: Denies acute: focal neurological deficit, motor or sensory focal neurological deficit, tremors, seizure like activity, confusion, dizziness, change in mental status, loss of bowel or bladder function, cauda equina like symptoms. : Denies acute: dysuria, hematuria, flank pain, increase in urinary frequency. PSYCH: Denies acute: hallucination, suicidal ideation, homicidal ideation. PHYSICAL EXAM: General: ----mild----acute distress, awake and alert. Head: normocephalic, atraumatic. Neck: supple, trachea is midline, no swelling. Throat: Normal phonation. Eyes:, no erythema, no purulent discharge, no proptosis, no icterus. Heart: regular rate, regular rhythm, no significant murmur appreciated. Lungs: no apparent respiratory distress, Able to speak in full sentences. No wheezing, no rhonchi, no crackles. No stridors Clear to auscultation bilaterally. Abdomen: non tender to palpation, non distended, soft, no guarding, no rebound, + bowel sounds. Evaluation of the area of specific complaint: Right-sided below the right sc apula focal area of tenderness to palpation that is worse with movement of the left upper extremity and deep inspiration. No appreciated erythema or lesions or rashes or swelling or crepitus. Neuro: Awake, Alert, oriented to name, self, situation, follows commands GCS=15. Speech is normal. Skin: no petechia, no purpura, no cyanosis, non-pale, not jaundice. Lower extremities: --no - Pitting edema no deformity, no focal swelling, no calf TTP. Makes eye contact. moves all four extremities. Face: no apparent facial droop. No CVA tenderness to percussion bilaterally. Ambulating in the ED independently. ED COURSE: DISCLAIMER: This medical document was created using an electronic medical record system with voice recognition software and computerized dictation system. Although this document has been carefully reviewed, there might still be some phonetic and typographical errors. Occasional wrong-word or "sound-alike" substitutions may have occurred due to the inherent limitations of voice recognition software. These areas are purely typographical due to imperfections of the software programs and do not reflect any compromise in the patient's medical care. Please read the chart carefully and recognize, using context, where these substitutions have occurred. Chief Complaint: Flank Pain Time Seen by MD: 21:20 Primary Care Provider: DENIES Reviewed Notes: Medications, Allergies Allergies: Coded Allergies: NO KNOWN ALLERGIES (Unverified , 09/20/18) Home Meds Active Scripts Bacitracin-Polymyxin B (Neosporin 500-02855 Unit/gm) 1 Oin Oin, 1 OIN EX TID for 10 Days, #30 OIN Prov:VINOD BURGOS MD 04/05/24 Cefdinir (Cefdinir) 300 Mg Cap, 1 CAP PO BID for 10 Days, #20 CAP Prov:VINOD BURGOS MD 04/05/24 Ciprofloxacin HCl (Ophth) (Ciprofloxacin Hydrochlori) 0.3 % Emi, 2 DROP OP QID, #5 ML Prov:RAJ HERRERA 07/31/23 Reported Medications Aspirin (Aspir-Low) 81 Mg Tab, 81 MG PO DAILY for 30 Days, MG 09/21/18 Clopidogrel Bisulfate (Plavix) 75 Mg Tab, 1 TAB PO DAILY, #90 TAB 1 Refill 09/21/18 Carvedilol (Carvedilol) 12.5 Mg Tab, 12.5 MG PO Q12HR for 30 Days, MG 09/21/18 Sacubitril-Valsartan (Entresto 97-103 mg) 1 Tab Tab, 1 TAB PO BID, TAB 09/21/18 Atorvastatin Calcium (ATORVASTATIN CALCIUM) 20 Mg Tab, 20 MG PO HS, TAB 07/22/16 Information Source: Patient Mode of Arrival: Ambulatory Timing: Weeks Duration: Intermittent Severity: Moderate Prehospital treatment: None Quality: Sharp Onset: Spontaneous History of: None Modifying Factors: Nothing Past Medical History PAST MEDICAL HISTORY: CHF, CVA, High Lipids, HTN Surgical History: Pacemaker Family History Family History: Reviewed,noncontributory to illness Social History Smoker: Cigarettes, Greater Than 1 Pack/Day Alcohol: Occasionally Drugs: Denies Drug Use Lives In: Home Was a procedure done? Was a procedure done?: No Back Pain Differential Dx Differential Diagnosis: AAA, Aortic Dissection, Appendicitis, Fracture, Musculoskeletal Pain, Other (Referred pain, PE, intrathoracic abnormality.) X-Ray, Labs, Meds, VS Vital Signs Date Time Temp Pulse Resp B/P (MAP) Pulse Ox O2 Delivery O2 Flow Rate FiO2 03/14/25 19:44 97.8 91 18 144/88 97 97.8 Lab Test 03/14/25 20:53 Range/Units White Blood Count 6.0 4.4-10.8 10^3/uL Red Blood Count 5.37 4.5-5.90 10^6/uL Hemoglobin 16.5 13.5-17.5 g/dL Hematocrit 48.8 41.0-53.0 % Mean Corpuscular Volume 91.0 80.0-100.0 fL Mean Corpuscular Hemoglobin 30.8 28.0-32.0 pg Mean Corpuscular Hemoglobin Concent 33.9 32.0-36.0 g/dL Red Cell Distribution Width 14.0 11.8-14.3 % Platelet Count 334 140-450 10^3/uL Mean Platelet Volume 8.0 6.9-10.8 fL Neutrophils (%) (Auto) 72.1 37.0-80.0 % Lymphocytes (%) (Auto) 19.3 10.0-50.0 % Monocytes (%) (Auto) 5.7 0.0-12.0 % Eosinophils (%) (Auto) 2.3 0.0-7.0 % Basophils (%) (Auto) 0.6 0.0-2.0 % Neutrophils # (Auto) 4.3 1.6-8.6 10 ^3/uL Lymphocytes # (Auto) 1.2 0.4-5.4 10 ^3/uL Monocytes # (Auto) 0.3 0-1.3 10 ^3/uL Eosinophils # (Auto) 0.1 0-0.8 10 ^3/uL Basophils # (Auto) 0 0-0.2 10 ^3/uL Nucleated Red Blood Cells 0.0 % D-Dimer, Quantitative 0.38 0.0-0.49 mg/L FEU Sodium Level 136 136-145 mmol/L Potassium Level 4.1 3.5-5.1 mmol/L Chloride Level 101 98-107 mmol/L Carbon Dioxide Level 24 20-31 mmol/L Anion Gap 11 5-15 Blood Urea Nitrogen 8 L 9-23 mg/dL Creatinine 1.07 0.700-1.30 mg/dL Glomerular Filtration Rate Calc 87 >90 mL/min BUN/Creatinine Ratio 7.5 L 10.0-20.0 Serum Glucose 96 74-106 mg/dL Lactic Acid Level 1.6 0.4-2.0 mmol/L Calcium Level 9.1 8.7-10.4 mg/dL Total Bilirubin 0.3 0.2-1.0 mg/dL Aspartate Amino Transferase (AST) 23 13-40 U/L Alanine Aminotransferase (ALT) 38 7-40 U/L Alkaline Phosphatase 90 46-116 U/L Total Protein 7.8 5.7-8.2 g/dL Albumin 4.9 H 3.2-4.8 g/dL [address] [address] Ph: [phone] DIAGNOSTIC IMAGING Diagnostic Imaging Report : [id number] Signed PATIENT: DANIEL ARMSTRONG ACCT: [id number] UNIT: [id number] : 1980 LOC: ER ROOM / BED: / AGE / SEX: 44 / M ADM STATUS: REG ER SERVICE 26 ORDERING PHYSICIAN: MIKEY ALEXANDER DO PROCEDURE(s): ABPL - CT AB PEL WO CON-NO ORAL OR IV REASON: L FLANK PAIN ORDER NUMBER(s): [id number], ACCESSION NUMBER(s): [id number] COMPUTERIZED TOMOGRAPHY ABDOMEN AND PELVIS WITHOUT CONTRAST REASON FOR EXAM: L FLANK PAIN COMPARISON: None TECHNIQUE: Spiral scans were acquired from the diaphragm to the symphysis pubis without intravenous contrast administration. 2-D coronal and sagittal reformatted images were provided. Radiation optimization: All CT scans at this facility use at least one of these dose optimization techniques: Automated exposure control mA and/or kV adjustment per patient size (includes targeted exams where dose is matched to clinical indication) or iterative reconstruction. RADIATION DOSE: CTDI: 22.94 mGy DLP: 1308.38 mGy-cm FINDINGS: There is mild dependent atelectasis in the left lower lobe. There is no pleural effusion. There is no pericardial effusion. There is partial visualization of cardiac pacer wires. The spleen is not enlarged. The liver is normal in size and contour. Evaluation of the abdominal organs is suboptimal in the absence of intravenous contrast. No calcified gallstone is identified. There is no pericholecystic edema. Unenhanced appearance of the pancreas is unremarkable. The adrenal glands are normal. The kidneys are similar in size. There is no hydronephrosis of either kidney. There is no renal, ureteral, or bladder calculus. There is no abdominal aortic aneurysm. There is moderate atherosclerosis. The urinary bladder is u nremarkable. The prostate and seminal vesicles are within normal limits. The colonic stool burden is small. The appendix is normal. There is no pathologic distention of the small bowel. No free fluid is identified in the abdomen or pelvis. There is no pathologic lymphadenopathy by size criteria. No acute osseous abnormality is identified. IMPRESSION: No renal, ureteral, or bladder calculus is identified. There is no hydronephrosis of either kidney. ATED BY: SINCERE SALDANA MD DICTATED DATE/TIME: 03/14/252104 SIGNED BY: SINCERE SALDANA MD SIGNED DATE/TIME: 03/14/252104 CC: [place] [id number] Ph: [phone] DIAGNOSTIC IMAGING Diagnostic Imaging Report : [id number] Signed PATIENT: DANIEL ARMSTRONG ACCT: [id number] UNIT: [id number] : 1980 LOC: ER ROOM / BED: / AGE / SEX: 44 / M ADM STATUS: REG ER SERVICE 22 ORDERING PHYSICIAN: MIKEY ALEXANDER DO PROCEDURE(s): LRIBS - L RIB X RAY REASON: below L scapula pain ORDER NUMBER(s): [id number], ACCESSION NUMBER(s): [id number] EXAM: XY L RIB X RAY HISTORY: below L scapula pain COMPARISON: None TECHNIQUE: Frontal view of the chest and multiple views of the left ribs were performed. FINDINGS/IMPRESSION: No acute displaced rib fracture. The lungs are clear. There is enlargement of the cardiomediastinal silhouette. There is a left-sided biventricular ICD. There is no pleural effusion or pneumothorax. ATED BY: LUNANE JERONIMO MD DICTATED DATE/TIME: 03/14/252313 SIGNED BY: LUANNE JERONIMO MD SIGNED DATE/TIME: 03/14/252313 CC: Time of 1ST Reevaluation: 21:50 Reevaluation 1ST: Unchanged Patient Education/Counseling: Diagnosis, Treatment Family Education/Counseling: No Family Present Comments MDM: patient presented with the above HPI.--upper back pain----workup was initiated. patient was found with the above mentioned diagnosis. the following medications were ordered: please refer to order lists of meds and tests obtained by myself Dr. Alexander. Patient ED course and VS have been stabilized. Patient has been reassessed in the ED and remained in a stable condition. Pertinent incidental findings were discussed with the patient and/or family. Patient/family voices understanding and is agreeable with plan. Patient has been observed in the ED adequate length of time to insure improvement/stability. Escalation of care considered: Consideration of escalation to observation or admission Patient was DISCHARGED home in a stable condition. All the reports of any imaging studies that were ordered by myself were reviewed by myself. Departure 1 Departure Time of Disposition: 23:31 Impression: Primary Impression: Musculoskeletal back pain Disposition: HOME / SELF CARE / HOMELESS Condition: Stable Additional Instructions: Additional instructions: Please read all instructions provided in this packet carefully. You MUST follow-up with your primary care/family doctor in 1 to 2 days. If you are unable to see your primary care/family doctor, please return to our emergency room for re-assessment and re-evaluation in 1 to 2 days. Return to the emergency room here in our facility or to the nearest ER [facility] if your symptoms change or worsen. CONSULTATIONS: you MUST Follow-up for consultation as soon as possible with: cardiology in 1-2 days. Please call for appointment You MUST call the consultants office yourself to make an appointment. You may need to arrange that through your insurance and/or your primary/family doctor. If you are unable to see the market consultant in 1 to 2 days, you must return to our emergency room (or any other ER of your choice) for re-assessment and re-evaluat ion. Adequate fluid hydration. Although you have been discharged from the Emergency Department, this does not mean that you have a "clean bill of health". No definitive diagnosis for your symptoms has been made today. It is possible that you are in the process of developing a serious illness. This is why you must return to the ED without fail if any new or worsening symptoms develop. Return for reassessment in 24-48 hours or sooner if needed. Rest. Below is a copy of your radiological report for follow up: [address] [address] Ph: [phone] DIAGNOSTIC IMAGING Diagnostic Imaging Report : [id number] Signed PATIENT: DANIEL ARMSTRONG ACCT: [id number] UNIT: [id number] : 1980 LOC: ER ROOM / BED: / AGE / SEX: 44 / M ADM STATUS: REG ER SERVICE 22 ORDERING PHYSICIAN: MIKEY ALEXANDER DO PROCEDURE(s): LRIBS - L RIB X RAY REASON: below L scapula pain ORDER NUMBER(s): [id number], ACCESSION NUMBER(s): [id number] EXAM: XY L RIB X RAY HISTORY: below L scapula pain COMPARISON: None TECHNIQUE: Frontal view of the chest and multiple views of the left ribs were performed. FINDINGS/IMPRESSION: No acute displaced rib fracture. The lungs are clear. There is enlargement of the cardiomediastinal silhouette. There is a left-sided biventricular ICD. There is no pleural effusion or pneumothorax. ATED BY: LUANNE JERONIMO MD DICTATED DATE/TIME: 03/14/252313 SIGNED BY: LUANNE JERONIMO MD SIGNED DATE/TIME: 03/14/252313 CC: [place] [id number] Ph: [phone] DIAGNOSTIC IMAGING Diagnostic Imaging Report : [id number] Signed PATIENT: DANIEL ARMSTRONG ACCT: [id number] UNIT: [id number] : 1980 LOC: ER ROOM / BED: / AGE / SEX: 44 / M ADM STATUS: REG ER SERVICE 26 ORDERING PHYSICIAN: MIKEY ALEXANDER DO PROCEDURE(s): ABPL - CT AB PEL WO CON-NO ORAL OR IV REASON: L FLANK PAIN ORDER NUMBER(s): [id number], ACCESSION NUMBER(s): [id number] COMPUTERIZED TOMOGRAPHY ABDOMEN AND PELVIS WITHOUT CONTRAST REASON FOR EXAM: L FLANK PAIN COMPARISON: None TECHNIQUE: Spiral scans were acquired from the diaphragm to the symphysis pubis without intravenous contrast administration. 2-D coronal and sagittal reformatted images were provided. Radiation optimization: All CT scans at this facility use at least one of these dose optimization techniques: Automated exposure control mA and/or kV adjustment per patient size (includes targeted exams where dose is matched to clinical indication) or iterative reconstruction. RADIATION DOSE: CTDI: 22.94 mGy DLP: 1308.38 mGy-cm FINDINGS: There is mild dependent atelectasis in the left lower lobe. There is no pleural effusion. There is no pericardial effusion. There is partial visualization of cardiac pacer wires. The spleen is not enlarged. The liver is normal in size and contour. Evaluation of the abdominal organs is suboptimal in the absence of intravenous contrast. No calcified gallstone is identified. There is no pericholecystic edema. Unenhanced appearance of the pancreas is unremarkable. The adrenal glands are normal. The kidneys are similar in size. There is no hydronephrosis of either kidney. There is no renal, ureteral, or bladder calculus. There is no abdominal aortic aneurysm. There is moderate atherosclerosis. The urinary bladder is unremarkable. The prostate and seminal vesicles are within normal limits. The colonic stool burden is small. The appendix is normal. There is no pathologic distention of the small bowel. No free fluid is identified in the abdomen or pelvis. There is no pathologic lymphadenopathy by size criteria. No acute osseous abnormality is identified. IMPRESSION: No renal, ureteral, or bladder calculus is identified. There is no hydronephrosis of either kidney. ATED BY: SINCERE SALDANA MD DICTATED DATE/TIME: 03/14/252104 SIGNED BY: SINCERE SALDANA MD SIGNED DATE/TIME: 03/14/252104 CC: Discharged With: Self Critical Care Note Critical Care Time?: No I personally scribed for MIKEY ALEXANDER DO ([email or web address]) on 03/14/25 at 21:25. Electronically submitted by Sara Heredia ([email or web address]). I personally scribed for MIKEY ALEXANDER DO ([email or web address]) on 03/14/25 at 23:23. E lectronically submitted by Sara Heredia ([email or web address]). MIKEY ALEXANDER DO Mar 14, 2025 21:25
[2025-03-14 21:26] LABS: Hematocrit 48.8 % (41.0-53.0); Hemoglobin 16.5 g/dL (13.5-17.5); Mean Corpuscular Hemoglobin 30.8 pg (28.0-32.0); Mean Corpuscular Volume 91.0 fL (80.0-100.0); Nucleated Red Blood Cells % 0.0 %
[2025-03-14 21:55] LABS: Alanine Aminotransferase 38 U/L (7-40); Alkaline Phosphatase 90 U/L (46-116); Anion Gap 11 (5-15); BUN/Creatinine Ratio 7.5 (10.0-20.0); Calcium 9.1 mg/dL (8.7-10.4); Carbon Dioxide 24 mmol/L (20-31); Chloride 101 mmol/L (98-107); Glucose 96 mg/dL (74-106); Potassium 4.1 mmol/L (3.5-5.1); Sodium 136 mmol/L (136-145); Total Protein 7.8 g/dL (5.7-8.2)
[2025-03-14 21:56] LABS: Bilirubin, Total 0.3 mg/dL (0.2-1.0)
[2025-03-14 22:14] LABS: Albumin 4.9 g/dL (3.2-4.8); Blood Urea Nitrogen 8 mg/dL (9-23)
--- NOTE | 2025-03-14 23:17 | DVH ---
EXAM: XY L RIB X RAY HISTORY: below L scapula pain COMPARISON: None TECHNIQUE: Frontal view of the chest and multiple views of the left ribs were performed. FINDINGS/IMPRESSION: No acute displaced rib fracture. The lungs are clear. There is enlargement of t he cardiomediastinal silhouette. There is a left-sided biventricular ICD. There is no pleural effus ion or pneumothorax.
[2025-03-15] MEDS: HYDROcodone-ACET 5/325MG TAB PO ONE (00:45)
[2025-03-15] MEDS: KETOROLAC TROMETH 30 MG/ML 1ML VIAL IV ONE (00:45)
== END 2025-03-15 00:49 | disposition home or self-care (01) ==
LOC: ER 19:48
DX: M54.9 Dorsalgia, unspecified (principal); M54.6 Pain in thoracic spine; I11.0 Hypertensive heart disease with heart failure; I50.9 Heart failure, unspecified; E78.5 Hyperlipidemia, unspecified; F17.210 Nicotine dependence, cigarettes, uncomplicated; Z79.82 Long term (current) use of aspirin; Z79.899 Other long term (current) drug therapy; Z86.73 Personal history of transient ischemic attack (TIA), and cerebral infarction without residual deficits; Z95.0 Presence of cardiac pacemaker
CPT/HCPCS: 36415; 71101; 74176; 80053; 83605; 85025; 85379; 96374; 99285; J1885